=== PATIENT | male | born 1935 | race Caucasian/White ===

== ENCOUNTER 2018-08-17 09:38 | Inpatient (IN) ==
[2018-08-17] MEDS ORDERED: dilTIAZem HCl 5 MG/ML 5 ML VIAL IV STA (09:59)
[2018-08-17] MEDS ORDERED: SODIUM CHLORIDE 0.9% 500 ML IV SCH (10:00)
--- NOTE | 2018-08-17 10:35 | XRay Report ---
XR chest 1V portable HISTORY: weakness COMPARISON: Chest 01/25/2012. FINDINGS: The lungs are clear. Cardiac silhouette is mildly enlarged. This remains unchanged. No pleu ral effusions. No pneumothorax. IMPRESSION: No significant change compared to the prior study. No acute process. Electronically signed by: Parrish Cintron M.D. 08/17/2018 10:34 AM
[2018-08-17 10:46] LABS: Basophils # (auto) 0.05 K/uL (0-0.2); Basophils % (auto) 0.6 %; Eosinophils # (auto) 0.48 K/uL (0-0.5); Eosinophils % (auto) 5.3 %; Hematocrit (blood only) 51.2 % (42-52); Hemoglobin 17.6 g/dL (14.0-18.0); Immature Granulocytes # (auto) 0.01 K/uL (0.00-0.02); Immature Granulocytes % (auto) 0.1 %; Lymphocytes # (auto) 2.48 K/uL (1.2-3.4); Lymphocytes % (auto) 27.6 %; Mean Corpuscular Hgb Conc 34.4 g/dL (32-36); Mean Corpuscular Volume 90.9 fL (80-100); Mean Platelet Volume 10.9 fL (7.4-10.4); Monocytes # (auto) 0.69 K/uL (0.11-0.59); Monocytes % (auto) 7.7 %; Neutrophils # (auto) 5.27 K/uL (1.4-6.5); Neutrophils % (auto) 58.7 %; Platelet Count 193 K/uL (130-400); RDW Coefficient of Variation 13.1 % (11.5-14.5); RDW Standard Deviation 43.2 fL (36.4-46.3); Red Blood Count 5.63 M/uL (4.7-6.1); White Blood Count 8.98 K/uL (4.8-10.8)
[2018-08-17 10:59] LABS: INR 1.1 (0.9-1.1); Prothrombin Time 10.8 Seconds (9.0-12.0)
[2018-08-17 11:04] LABS: Alanine Aminotransferase 19 U/L (12-78); Aspartate Aminotransferase 17 U/L (15-37); BUN Creatinine Ratio 11.4 (10-20); Blood Urea Nitrogen 14 mg/dl (7-18); Calcium 8.4 mg/dl (8.5-10.1); Carbon Dioxide 26 mmol/L (21-32); Chloride 108 mmol/L (98-107); Creatinine Clr Calc Pharmacy 47.1 ml/min; Est GFR (African American) 62.6; Glucose 91 mg/dl (70-99); Sodium 141 mmol/L (136-145)
[2018-08-17 11:15] LABS: Albumin Globulin Ratio 1.1 (0.9-2); Alkaline Phosphatase 42 U/L (45-117); Bilirubin,Total 1.2 mg/dl (0.2-1); Globulin 3.7 gm/dl (2.5-4.0); Total Protein 7.7 gm/dl (6.4-8.2); Troponin I < 0.015 ng/ml (0-0.045)
--- NOTE | 2018-08-17 11:31 | Emergency Department Note ---
Entered by Sri Menendez acting as a scribe for History of Present Illness General Chief complaint: Dizziness Time Seen by Provider: 08/17/18 09:50 Source: patient History of Present Illness Onset (ago): hour(s) 2 Location: head Severity: similar to prior episodes (atrial fibrillation) Pain Consistency: + other (sudden) Quality: + other (dizziness) Associated symptoms: + weakness and + other (lightheaded, feeling like going to passout, unsteady on feet) The patient is an 82 year old male who presents to the Emergency Room with complaints of sudden dizziness starting 2 hours ago. The patient states that this morning he woke up and went to wash his face. He states that while at the sink he suddenly felt lightheaded and like he was going to pass out. He states that his legs became weak and he collapsed to the floor. He states that he finally got himself up and felt unsteady on his feet, so he went and laid back down in bed. He reports that after a little while, he felt a little better. He states that he got up again and went and shaved. He reports that he was walking back into the bedroom after being up for 5-10 minutes when he started to feel dizzy and unsteady on his feet.. He reports that it felt like his balance was completely off. The patient notes that this feels similar to [place] and was diagnosed with atrial fibrillation. He states that since the episode he is on medicine to prevent him from being in atrial fibrillation and he is not normally in atrial fibrillation. Home Medications Home Medications Medication Instructions Recorded Confirmed Type aspirin 81 mg PO QAM 08/17/18 08/17/18 History cholecalciferol (vitamin D3) 1,000 unit PO QAM 08/17/18 08/17/18 History [Vitamin D3] glucosamine-chondroitin 2 tab PO QAM 08/17/18 08/17/18 History hydrochlorothiazide 12.5 mg PO Q2D 08/17/18 08/17/18 History metoprolol succinate 25 mg PO QAM 08/17/18 08/17/18 History omeprazole 20 mg PO QAM 08/17/18 08/17/18 History Allergies Allergy/AdvReac Type Severity Reaction Status Date / Time No Known Allergies Allergy Mild Verified 08/17/18 10:21 Past Med/Surg History Medical History Atrial fibrillation Macular degeneration Family History Other Family history non-contributory Social History marital status: Current Living Situation: Spouse current occupational status: retired Feels Safe at Home: Yes Smoking Status: Former smoker Review of Systems See HPI for pertinent positives & negatives. and A total of 10 systems reviewed and were otherwise negative Physical Exam Vital Signs Vital Signs - 24 hr 08/17/18 09:46 08/17/18 09:52 08/17/18 09:53 Temperature 36.9 C Temperature Source Oral Sepsis Recent Fever Within 48 Hours No Sepsis Action Taken by Nursing No Action Required Pulse Rate 112 H 119 H 109 H Pulse Rhythm Regular Pulse Strength Normal Respiratory Rate 18 18 20 Respiratory Effort / Characteristics Non-Labored Spontaneous Respiratory Depth Normal Blood Pressure 158/122 H 158/122 H Blood Pressure Mean 134 134 Blood Pressure Position Lying Pulse Oximetry 97 Oxygen Delivery Method Room Air 08/17/18 10:00 08/17/18 10:01 08/17/18 10:30 Temperature Temperature Source Sepsis Recent Fever Within 48 Hours Sepsis Action Taken by Nursing Pulse Rate 122 H 97 H 120 H Pulse Rhythm Pulse Strength Respiratory Rate 22 24 21 Respiratory Effort / Characteristics Respiratory Depth Blood Pressure 144/92 H Blood Pressure Mean 109 Blood Pressure Position Pulse Oximetry Oxygen Delivery Method Room Air 08/17/18 10:37 08/17/18 10:41 08/17/18 10:46 Temperature Temperature Source Sepsis Recent Fever Within 48 Hours Sepsis Action Taken by Nursing Pulse Rate 107 H 110 H 92 H Pulse Rhythm Pulse Strength Respiratory Rate 17 18 15 Respiratory Effort / Characteristics Respiratory Depth Blood Pressure 119/94 139/94 122/76 Blood Pressure Mean 102 109 91 Blood Pressure Position Pulse Oximetry Oxygen Delivery Method 08/17/18 10:51 08/17/18 10:56 08/17/18 11:00 Temperature Temperature Source Sepsis Recent Fever Within 48 Hours Sepsis Action Taken by Nursing Pulse Rate 81 80 99 H Pulse Rhythm Pulse Strength Respiratory Rate 19 16 14 Respiratory Effort / Characteristics Respiratory Depth Blood Pressure 131/67 128/76 Blood Pressure Mean 88 93 Blood Pressure Position Pulse Oximetry Oxygen Delivery Method 08/17/18 11:30 01/30/19 11:31 Temperature Temperature Source Sepsis Recent Fever Within 48 Hours Sepsis Action Taken by Nursing Pulse Rate 84 84 Pulse Rhythm Pulse Strength Respiratory Rate 20 19 Respiratory Effort / Characteristics Respiratory Depth Blood Pressure 124/71 Blood Pressure Mean 88 Blood Pressure Position Pulse Oximetry Oxygen Delivery Method VITAL SIGNS: were reviewed as above. GENERAL:Non-toxic in appearance. SKIN: Warm dry and pink. HEAD: Normocephalic and atraumatic. OROPHARYNX: Is clear and moist NECK: Supple without lymphadenopathy or meningismus. LUNGS: clear. HEART: Regular rate and rhythm. ABDOMEN: Soft and nontender. EXTREMITIES: Warm and well perfused. NEUROLOGICALLY: Awake alert and oriented without focal deficit. Cranial nerves 2 -12 are intact. There is no pronator drift. Cerebellar testing is within normal limits. There is no nystagmus. There is no facial droop. Speech is clear. Vision is grossly normal. MUSCULOSKELETAL: Good muscle tone. No evidence of trauma. Course 0951: Past medical records reviewed. The patient was evaluated in room A9B, and a complete history and physical examination were performed. 1125: I reevaluated the patient and he is feeling better. 1131: Nursing staff bought me the strip for the b2b sales professional and it showed that he patient had a run of V-tach. 1139: I paged the hospitalist at this time. 1141: I reviewed the patient's case with Dr. Ann Marie QURESHI Hospitalist. He will evaluate the patient for further management. 1144: I reevaluated the patient and updated him on his test results. I discussed the treatment plan with him and his family. They verbally agree and understand. Consultations Consultation #1: I reviewed the patient's case with Dr. Ann Marie QURESHI Hospitalist. He will evaluate the patient for further management. Time: 11:41 Administered Medications Discontinued Medications Diltiazem HCl (Cardizem) 15 mg IV NOW STA Stop: 08/17/18 10:00 Last Admin: 08/17/18 10:38 Dose: 15 mg Sodium Chloride (Nss) 500 mls @ 999 mls/hr IV .Q31M SHELDON Stop: 08/17/18 10:30 Last Infusion: 08/17/18 11:10 Dose: 0 mls/hr Admin: 08/17/18 10:38 Dose: 999 mls/hr Medical Decision Making Differential Diagnosis Differential includes acute coronary syndrome, myocardial infarction, CVA, TIA , anemia, infection, pneumonia, UTI, pyelonephritis, poor nutrition, dehydration , electrolyte disturbance,hypoglycemia. Medical Records Attestation: I reviewed the patient's medical records. Home Medications Current Medication List: was personally reviewed by me Laboratory Data Attestation: I reviewed the patient's lab results. Result diagrams: 08/17/18 10:35 08/17/18 10:35 Lab Results 08/17/18 08/17/18 08/17/18 Range/Units 10:35 10:35 10:35 WBC 8.98 (4.8-10.8) K/uL RBC 5.63 (4.7-6.1) M/uL Hgb 17.6 (14.0-18.0) g/dL Hct 51.2 (42-52) % MCV 90.9 (80-100) fL MCH 31.3 (25-34) pg MCHC 34.4 (32-36) g/dL RDW Std Deviation 43.2 (36.4-46.3) fL RDW Coeff of Frank 13.1 (11.5-14.5) % Plt Count 193 (130-400) K/uL MPV 10.9 H (7.4-10.4) fL Immature Gran % (Auto) 0.1 % Neut % (Auto) 58.7 % Lymph % (Auto) 27.6 % [place] % (Auto) 7.7 % Eos % (Auto) 5.3 % Baso % (Auto) 0.6 % Immature Gran # (Auto) 0.01 (0.00-0.02) K/uL Neut # (Auto) 5.27 (1.4-6.5) K/uL Lymph # (Auto) 2.48 (1.2-3.4) K/uL [place] # (Auto) 0.69 H (0.11-0.59) K/uL Eos # (Auto) 0.48 (0-0.5) K/uL Baso # (Auto) 0.05 (0-0.2) K/uL PT 10.8 (9.0-12.0) Seconds INR 1.1 (0.9-1.1) Sodium 141 (136-145) mmol/L Potassium 4.0 (3.5-5.1) mmol/L Chloride 108 H (98-107) mmol/L Carbon Dioxide 26 (21-32) mmol/L Anion Gap 7.0 (3-11) BUN 14 (7-18) mg/dl Creatinine 1.25 (0.6-1.4) mg/dl Est Cr Clr Drug Dosing 47.1 ml/min Est GFR ( Amer) 62.6 Est GFR (Non-Af Amer) 54.0 BUN/Creatinine Ratio 11.4 (10-20) Glucose 91 (70-99) mg/dl Calcium 8.4 L (8.5-10.1) mg/dl Total Bilirubin 1.2 H (0.2-1) mg/dl AST 17 (15-37) U/L ALT 19 (12-78) U/L Alkaline Phosphatase 42 L (45-117) U/L Troponin I < 0.015 (0-0.045) ng/ml Total Protein 7.7 (6.4-8.2) gm/dl Albumin 4.0 (3.4-5.0) gm/dl Globulin 3.7 (2.5-4.0) gm/dl Albumin/Globulin Ratio 1.1 (0.9-2) TSH 1.820 (0.300-4.500) uIu/ml Imaging Data Radiologist's Impression: Radiology results as stated below per my review and the radiologist's interpretation: XR chest 1V portable HISTORY: weakness COMPARISON: Chest 01/25/2012. FINDINGS: The lungs are clear. Cardiac silhouette is mildly enlarged. This remains unchanged. No pleural effusions. No pneumothorax. IMPRESSION: No significant change compared to the prior study. No acute process. Electronically signed by: Parrish Cintron M.D. 08/17/2018 10:34 AM ECG Data Attestation: I personally reviewed and interpreted this ECG as follows: Indication: weakness Rate (beats per minute): 112 Rhythm: atrial flutter Findings: + PVC; no ST elevation Additional Comments: REPEAT: Atrial flutter at a rate of 86. Multifocal PVCs. No acute ischemia. Blood Pressure Blood Pressure Findings: Normal blood pressure Blood Pressure Disposition: did not require urgent referral MDM Narrative This is an 82-year-old male who presents to the ED with a chief complaint of feeling well this morning. The patient at 8 AM states that he was washing his face and suddenly felt weak and lightheaded. He laid down on the bed for a few minutes and then seemed to be better. He was able to finish shaving and when he was walking back to the bedroom he began feeling unsteady. He was brought to the ED for evaluation. He is currently feeling better. The patient's physical exam was unremarkable. He does have an irregular and slightly rapid pulse. His initial EKG shows atrial flutter with RVR at a rate of 116 with occasional PVCs and no ischemic changes. After IV Cardizem 20 mg, the patient' s heart rate improved. His blood work including a CBC and chemistry panel was unremarkable. Troponin was negative, TSH was normal. The patient did have at least 2 runs of ventricular tachycardia during his ED stay. One episode included about 10 beats and the second episode was 23 beats long. The patient was seen to the time and did not have any significant clinical symptoms with this. I spoke with the hospitalist, who will see the patient for further inpatient evaluation and care. The patient was also given some IV fluids 500 cc normal saline. Impression & Plan Ventricular tachycardia, Atrial flutter with rapid ventricular response Discharge Plan Visit Data Chief Complaint: Dizziness ED Provider: Rodríguez Arthur Discharge Problem: Ventricular tachycardia, Atrial flutter with rapid ventricular response Patient Disposition: Being Evaluated by Hospitalist Condition: Good Forms Stand Alone Forms: My [facility] Prescriptions Prescriptions: No Action aspirin 81 mg Tablet,Delayed Release (Dr/Ec) 81 mg PO QAM RF: 0 omeprazole 20 mg Capsule,Delayed Release(Dr/Ec) 20 mg PO QAM RF: 0 hydrochlorothiazide 25 mg tablet 12.5 mg PO Q2D RF: 0 metoprolol succinate 25 mg tablet extended release 24 hr 25 mg PO QAM RF: 0 cholecalciferol (vitamin D3) [Vitamin D3] 1,000 unit Capsule 1,000 unit PO QAM RF: 0 glucosamine-chondroitin 750-600 mg Tablet 2 tab PO QAM RF: 0 Referrals Referrals: Zafar De La Fuente III, CRNP [Primary Care Provider] - The scribe's documentation has been prepared under my direction and personally reviewed by me in its entirety. I confirm that the note above accurately reflects all work, treatment, procedures, and medical decision making performed by me.
[2018-08-17] MEDS ORDERED: METOPROLOL SUCC 50MG EXT REL TAB PO STA (12:18)
[2018-08-17] MEDS ORDERED: METOPROLOL SUCC 50MG EXT REL TAB ONE (12:21)
--- NOTE | 2018-08-17 12:22 | History & Physical Report ---
Date of Service August 17, 2018 Assessment & Plan (1) Ventricular tachycardia: several runs of V tach in the ED longest was 20 beats, non-sustained no symptoms while he had the V tach but perhaps this is what gave him dizziness at home will increase Toprol to 50mg, give dose in the ED since he did not take at home check troponin x 3 sets to r/o ischemia as cause check echocardiogram consult Dr. Salcedo (2) Atrial flutter with rapid ventricular response: h/o afib several years ago, treated with Toprol not on anticoagulation per patient he said that to his knowledge he has been in sinus rhythm, must have converted with medications will consult ortho place on full dose Lovenox for anticoagulation until we decide on PO anticoagulation (3) GERD (gastroesophageal reflux disease): PPI History of Present Illness Chief Complaint: I felt like I was going to pass out Primary Care Provider: Zafar De La Fuente, III, [employer] 82 yo male who lives at home independently, presents to the ED today due to two separate pre-syncopal episodes. The patient says he woke up feeling normal. He was standing at the sink shaving when he felt like he was going to pass out. He did not have any chest pain/pressure or palpitations, just light headed and diaphoretic. He layed down on his bed for several minutes and gradually sat up and felt better. He again stood at the sink and finished shaving but then he had another episode that was exactly the same so he and his family agreed that he should come to the ED. Initial EKG showed atrial flutter but in the 110's. He was given a dose of Cardizem and HR came down to the 90's. CBC and BMP were unremarkable. Troponin was negtive. Discussed further with patient, he carries a history of atrial fibrillation, was followed by Dr. Salcedo. He takes Toprol 25mg every morning. He thinks he converted to NSR on medication because he never had a cardioversion. In the ED he had a few runs of V tach that were non-sustained. Ranged between 8 -20 beats, he did not have any symptoms. Recent history significant for right eye surgery yesterday for macular degeneration, was a simple outpatient procedure, no complications Family hx: both parents lived into their 90's, of natural causes Social hx: no significant tobacco or Etoh history, retired for 20 years, walks every day, never has chest pain Allergies Allergy/AdvReac Type Severity Reaction Status Date / Time No Known Allergies Allergy Mild Verified 08/17/18 10:21 Home Medications Home Medications Medication Instructions Recorded Confirmed Type aspirin 81 mg PO QAM 08/17/18 08/17/18 History cholecalciferol (vitamin D3) 1,000 unit PO QAM 08/17/18 08/17/18 History [Vitamin D3] glucosamine-chondroitin 2 tab PO QAM 08/17/18 08/17/18 History hydrochlorothiazide 12.5 mg PO Q2D 08/17/18 08/17/18 History metoprolol succinate 25 mg PO QAM 08/17/18 08/17/18 History omeprazole 20 mg PO QAM 08/17/18 08/17/18 History Past Med/Surg History Medical History Atrial fibrillation Macular degeneration Family History Other Family history non-contributory Social History marital status: Current Living Situation: Spouse current occupational status: retired Other Information That Helps Us Care for You: No Feels Safe at Home: Yes Safety Concerns: Feels Safe At This Time Smoking Status: Former smoker Do You Dip or Chew Tobacco: No Second Hand Exposure: No Tobacco Cessation Education Requested by Patient: No Hx Alcohol Use: Yes Alcohol Intake Frequency: holidays/special occasions only Hx Substance Use: No Beliefs That Will Affect Care: None Preferred Language: [place] Communication Ability: Effective Child Study Team Director Required: No Review of Systems All systems reviewed & are unremarkable except as noted in HPI & below Constitutional: + weakness; no fever, no sweats and no fatigue Cardiovascular: + lightheadedness; no chest pain, no radiating jaw, neck or arm pain, no dyspnea, no dyspnea on exertion, no palpitations, no syncope (+ presyncope) and no edema Gastrointestinal: no abdominal pain, no nausea, no vomiting, no constipation and no diarrhea/loose stools Genitourinary (Male): no dysuria and no difficulty urinating Neurologic: no gait abnormality, no falls, no lack of coordination, no abnormal movements and no dizziness Psychiatric: no depression and no anxiety Physical Exam 2 Vital Signs (Past 24 Hours): Last Vital Signs Temp 36.9 C 08/17/18 09:53 Pulse 84 08/17/18 11:31 Resp 19 08/17/18 11:31 BP 124/71 08/17/18 11:31 Pulse Ox 97 08/17/18 09:53 Constitutional: WD/WN, vitals as above Eyes: normal visual [place] by confrontation, + scleral abnormality (right eye red due to recent procedure, no purulent drainage), EOM intact bilaterally and reactive pupils; no conjunctival abnormality ENMT: external ear and nose normal, oropharynx normal Neck: trachea midline, no thyromegaly Respiratory: normal respiratory effort, lungs clear to auscultation Cardiovascular: Rate/Rhythm: regular rate; + abnormal rhythm (irregular irregular) Heart Sounds: normal S1 and normal S2; no murmur Vessels: normal peripheral pulses Extremities: no pedal edema Gastrointestinal (Abdomen): normal bowel sounds, soft, nontender, no hepatosplenomegaly Musculoskeletal: no cyanosis or clubbing, extremities motor strength 5/5 Skin: no rashes, warm and dry Neurologic: patellar DTR's 2+ bilat, sensation intact and PERRL, EOMI, accommodation nl, no face palsy, no dysarthria normal touch/pain/ proprioception Psychiatric: A+Ox3, euthymic affect Lymphatic: no cervical or axillary lymphadenopathy Results & Data Laboratory Results Laboratory Results - last 24 hr 08/17/18 08/17/18 08/17/18 10:35 10:35 10:35 WBC 8.98 RBC 5.63 Hgb 17.6 Hct 51.2 MCV 90.9 MCH 31.3 MCHC 34.4 RDW Std Deviation 43.2 RDW Coeff of Frank 13.1 Plt Count 193 MPV 10.9 H Immature Gran % (Auto) 0.1 Neut % (Auto) 58.7 Lymph % (Auto) 27.6 [place] % (Auto) 7.7 Eos % (Auto) 5.3 Baso % (Auto) 0.6 Immature Gran # (Auto) 0.01 Neut # (Auto) 5.27 Lymph # (Auto) 2.48 [place] # (Auto) 0.69 H Eos # (Auto) 0.48 Baso # (Auto) 0.05 PT 10.8 INR 1.1 Sodium 141 Potassium 4.0 Chloride 108 H Carbon Dioxide 26 Anion Gap 7.0 BUN 14 Creatinine 1.25 Est Cr Clr Drug Dosing 47.1 Est GFR ( Amer) 62.6 Est GFR (Non-Af Amer) 54.0 BUN/Creatinine Ratio 11.4 Glucose 91 Calcium 8.4 L Total Bilirubin 1.2 H AST 17 ALT 19 Alkaline Phosphatase 42 L Troponin I < 0.015 Total Protein 7.7 Albumin 4.0 Globulin 3.7 Albumin/Globulin Ratio 1.1 TSH 1.820 Urine Color Urine Appearance Urine pH Ur Specific [place] Urine Protein Urine Glucose (UA) Urine Ketones Urine Blood Urine Nitrite Urine Bilirubin Urine Urobilinogen Ur Leukocyte Esterase 08/17/18 08/17/18 16:59 Unknown WBC RBC Hgb Hct MCV MCH MCHC RDW Std Deviation RDW Coeff of Frank Plt Count MPV Immature Gran % (Auto) Neut % (Auto) Lymph % (Auto) [place] % (Auto) Eos % (Auto) Baso % (Auto) Immature Gran # (Auto) Neut # (Auto) Lymph # (Auto) [place] # (Auto) Eos # (Auto) Baso # (Auto) PT INR Sodium Potassium Chloride Carbon Dioxide Anion Gap BUN Creatinine Est Cr Clr Drug Dosing Est GFR ( Amer) Est GFR (Non-Af Amer) BUN/Creatinine Ratio Glucose Calcium Total Bilirubin AST ALT Alkaline Phosphatase Troponin I < 0.015 Total Protein Albumin Globulin Albumin/Globulin Ratio TSH Urine Color Yellow Urine Appearance Clear Urine pH 7.0 Ur Specific [place] 1.011 Urine Protein Negative Urine Glucose (UA) Negative Urine Ketones Trace H Urine Blood Negative Urine Nitrite Negative Urine Bilirubin Negative Urine Urobilinogen Negative Ur Leukocyte Esterase Negative Diagnostic Findings CXR: no acute pulmonary issues Medications Administered Current Inpatient Medications Acetaminophen (Tylenol) 650 mg PO Q4H PRN PRN Reason: Pain or Fever Stop: 09/16/18 13:53 Aspirin (Ecotrin Ectab) 81 mg PO QAM [facility] Stop: 09/17/18 08:59 Enoxaparin Sodium (Lovenox) 80 mg SQ Q12H [facility] Stop: 09/17/18 05:59 Metoprolol Succinate (Toprol Xl) 50 mg PO QAM [facility] Stop: 09/17/18 08:59 Ondansetron HCl (Zofran) 4 mg IV Q6H PRN PRN Reason: Nausea Stop: 09/16/18 13:53 Pantoprazole Sodium (Protonix) 40 mg PO DAILY [facility]; Protocol Stop: 09/17/18 08:59 Vitamin D (Vitamin D3) 1,000 units PO QAM [facility] Stop: 09/17/18 08:59 Code Status & VTE Plan Code Status full code VTE Prophylaxis Plan VTE Prophylaxis will be ordered: Yes
[2018-08-17] MEDS ORDERED: ONDANSETRON INJ 2 MG/ML 2 ML VIAL IV PRN (13:54)
[2018-08-17] MEDS ORDERED: ACETAMINOPHEN 325 MG TAB PO PRN (13:54)
[2018-08-17] MEDS ORDERED: ENOXAPARIN INJ 40 MG/0.4 ML SYR SQ SCH (13:54)
[2018-08-17] MEDS ORDERED: ENOXAPARIN 80 MG/0.8 ML SYR SQ SCH (15:15)
--- NOTE | 2018-08-17 15:47 | Cardiology Consultation ---
Date of Consultation August 17, 2018 Assessment & Plan (1) Atrial flutter with rapid ventricular response: His records report a history of atrial fibrillation. The rhythm documented today is more consistent with an atrial flutter. Curiously, he seem to have the same symptoms in association with atrial fibrillation several years ago. I suspect his symptoms were related to a change in rhythm from sinus to atrial flutter. While he continues to be in atrial flutter, his symptoms have entirely resolved. This was most likely due to increased vagal output around the time of his rhythm change. In the past, it seems that he converted spontaneously to sinus. He has not been maintained on systemic anticoagulation as he has not had any documented recurrence until now. Hopefully he will return to sinus rhythm on his own. I think we can initiate anticoagulation this evening and monitor his rhythm overnight. In the absence of a conversion he could be placed on systemic anticoagulation for 1 month and cardioverted. Catheter based therapy for his atrial flutter could also be considered although in the setting of prior atrial fibrillation treatment of his flutter would not prevent recurrence of atrial fibrillation. Present on Admission?: Yes (2) Ventricular tachycardia: He was reported to have runs of ventricular tachycardia in the emergency room. I have not found any documentation this arrhythmia. This could been aberrant conduction in the setting of atrial flutter. Interestingly, the patient is known to have frequent PVCs. A review of his old EKGs in the 1 recorded today suggests that the morphology of the wide complex beats are similar to his old PVCs. I suspect he continues to have frequent PVCs and may have episodes of nonsustained ventricular tachycardia at times. I think this is less likely to have caused his symptoms today. However, I think an assessment of his left ventricular function is in order so that he can be risk stratified regarding the likelihood of more malignant arrhythmias. I would agree with continued beta blockade. Present on Admission?: No (3) Valvular heart disease: He was known to have an element of mitral regurgitation in association with an abnormal mitral valve. He is known to have a sclerotic aortic valve and mild aortic regurgitation. This will be reassessed on his echocardiogram. Present on Admission?: Yes (4) Aortic root dilation: His aortic root measured 4.4 centimeters in 2017. Will reassess on his echocardiogram today. Present on Admission?: Yes History of Present Illness Reason for Consultation: Syncope Requesting Physician: Lorenzo Attending Physician: Drake Ventura, DO History of Present Illness The patient is an 82-year-old gentleman with a history of syncope and atrial fibrillation who suffered an episode presyncope and weakness earlier this morning. Patient states that this morning he was in the bathroom getting rate to shave when he began to experience a sense of weakness. He felt as if he was going to fall and actually eased himself to the ground in his bathroom. He continued to be weak but was able to make it to his bed where he lie down for a while. After feeling better he attended ambulate again but reported significant weakness in his legs and fell to the floor. He contacted his who eventually brought into [facility] for evaluation. He does not believe he lost consciousness during these episodes. He did describe some vague sense of dizziness but in general felt as if he was more weak than dizzy. He was not aware of any palpitations at that time. Curiously, he feels that his initial episode of syncope which [place] involved similar symptoms. At [facility] he was discovered to be in atrial flutter with rapid ventricular response. He was administered some diltiazem with improvement in his heart rate. According to the notes he did have several episodes of ventricular tachycardia in the emergency room. Two specific episodes 1 of which lasted for 25 beats. The patient not appear to be symptomatic during these episodes. In general he is an active individual who exercises regularly. He performs exercise on a treadmill routinely. He does not report any new exercise intolerance. He has not had exertional dyspnea or any chest discomfort. He has not been aware of any palpitations. He does take his blood pressure regularly at home and has not reported unusual heart rate readings. His heart rate commonly is irregular however. At the time of this interview the patient is feeling well and has no symptoms. Allergies Allergy/AdvReac Type Severity Reaction Status Date / Time No Known Allergies Allergy Mild Verified 08/17/18 10:21 Home Medications Home Medications Medication Instructions Recorded Confirmed Type aspirin 81 mg PO QAM 08/17/18 08/17/18 History cholecalciferol (vitamin D3) 1,000 unit PO QAM 08/17/18 08/17/18 History [Vitamin D3] glucosamine-chondroitin 2 tab PO QAM 08/17/18 08/17/18 History hydrochlorothiazide 12.5 mg PO Q2D 08/17/18 08/17/18 History metoprolol succinate 25 mg PO QAM 08/17/18 08/17/18 History omeprazole 20 mg PO QAM 08/17/18 08/17/18 History Patient History Medical History Atrial fibrillation Macular degeneration Family History Other Family history non-contributory Social History marital status: Current Living Situation: Spouse current occupational status: retired Other Information That Helps Us Care for You: No Feels Safe at Home: Yes Safety Concerns: Feels Safe At This Time Smoking Status: Former smoker Do You Dip or Chew Tobacco: No Second Hand Exposure: No Tobacco Cessation Education Requested by Patient: No Hx Alcohol Use: Yes Alcohol Intake Frequency: holidays/special occasions only Hx Substance Use: No Beliefs That Will Affect Care: None Preferred Language: Irish Communication Ability: Effective Nanotechnologist Required: No Review of Systems Complete. Pertinent positives known history of present illness. No recent constitutional symptoms such as fevers or chills. No orthopnea or paroxysmal nocturnal dyspnea. No edema in lower extremities. Physical Exam 2 Vital Signs (Past 24 Hours): Last Vital Signs Temp 36.9 C 08/17/18 14:17 Pulse 63 08/17/18 14:17 Resp 18 08/17/18 14:17 BP 159/82 H 08/17/18 14:17 Pulse Ox 97 08/17/18 14:17 Physical Exam: The patient is alert and oriented. Mood and affect appeared normal. He answered all questions appropriately. HEENT: Pupils are equal and reactive to light and accommodation. Extraocular movements are intact. The sclerae are anicteric. Neuro: Cranial nerves intact Neck: Patient's neck is supple. He has palpable carotid pulses bilaterally without bruits on auscultation. There is no evidence of jugular venous distention. The thyroid is not enlarged. Lungs: Clear to auscultation bilaterally. He has good air movement without use of accessory muscles. No rales wheezes or rhonchi. Cardiac: Heart demonstrates a regular rate and rhythm with frequent ectopy. Normal S1 and S2. No murmurs on examination. Pulses: The patient has palpable radial pulses bilaterally that are equal in intensity Extremities: There was no evidence of hypoperfusion. There is no cyanosis or clubbing. There is no edema. Skin: I did not appreciate any rashes on examination today. Results & Data Laboratory Results Abnormal Lab Results 08/17/18 08/17/18 08/17/18 10:35 10:35 10:35 WBC 8.98 RBC 5.63 Hgb 17.6 Hct 51.2 MCV 90.9 MCH 31.3 MCHC 34.4 RDW Std Deviation 43.2 RDW Coeff of Frank 13.1 Plt Count 193 MPV 10.9 H Immature Gran % (Auto) 0.1 Neut % (Auto) 58.7 Lymph % (Auto) 27.6 Dewitt % (Auto) 7.7 Eos % (Auto) 5.3 Baso % (Auto) 0.6 Immature Gran # (Auto) 0.01 Neut # (Auto) 5.27 Lymph # (Auto) 2.48 Dewitt # (Auto) 0.69 H Eos # (Auto) 0.48 Baso # (Auto) 0.05 PT 10.8 INR 1.1 Sodium 141 Potassium 4.0 Chloride 108 H Carbon Dioxide 26 Anion Gap 7.0 BUN 14 Creatinine 1.25 Est Cr Clr Drug Dosing 47.1 Est GFR ( Amer) 62.6 Est GFR (Non-Af Amer) 54.0 BUN/Creatinine Ratio 11.4 Glucose 91 Calcium 8.4 L Total Bilirubin 1.2 H AST 17 ALT 19 Alkaline Phosphatase 42 L Troponin I < 0.015 Total Protein 7.7 Albumin 4.0 Globulin 3.7 Albumin/Globulin Ratio 1.1 TSH 1.820 Diagnostic Findings Echocardiogram obtained 09/30/2016: Normal LV systolic function. Type 2 diastolic dysfunction. Mild aortic regurgitation. Moderate mitral regurgitation. Dilated at ascending aorta. ECG Additional Comments: Twelve lead EKG obtained the time admission reveals an atrial flutter with frequent ectopy versus aberrant conduction.
[2018-08-17 16:13] LABS: Appearance Urine Clear (Clear); Bilirubin Urine Negative (Negative); Color Urine Yellow; Glucose Urine UA Negative (Negative); Ketones Urine Trace (Negative); Leukocyte Esterase Urine Negative (Negative); Nitrite Urine Negative (Negative); Protein Urine Negative (Negative); Specific Gravity Urine 1.011 (1.000-1.030); Urobilinogen Urine Negative (Negative)
[2018-08-18] MEDS ORDERED: ENOXAPARIN 80 MG/0.8 ML SYR SQ SCH (06:00)
[2018-08-18] MEDS: PANTOprazole 40 MG TAB PO SCH (08:05)
[2018-08-18] MEDS: CHOLECALCIFEROL 1,000 UNITS TAB PO SCH (08:05)
[2018-08-18] MEDS ORDERED: ASPIRIN 81 MG ECTAB PO SCH (09:00)
[2018-08-18] MEDS ORDERED: METOPROLOL SUCC 25MG EXT REL TAB PO SCH (09:00)
--- NOTE | 2018-08-18 09:42 | Cardiology Progress Note ---
Date of Service August 18, 2018 Assessment & Plan (1) Atrial fibrillation: He presents now with recurrent atrial fibrillation and possible intermittent flutter, with a presentation very similar to his last episode in 2012. Conceivably he has had episodes in the interim but it seems unlikely although he does not feel palpitations. He had an eye injection performed the day before his presentation, they checked his blood pressure and heart rate and he knew his blood pressure but did not know his heart rate but says that he did hear the number and it seemed okay, it seems unlikely he would have been in this arrhythmia at that time and it would not have been noticed. If needed we can investigate, however that would suggest that the arrhythmia occurred overnight and was not present when he went to bed the night before. He will need to stay on anticoagulation now, his rate appears well controlled. If he feels well with rate control and anticoagulation I think he can go home and we can follow him up in the office next week to see if he remains in atrial fibrillation. I suspect he will convert on his own but we will have to see. For now I would agree with increasing his metoprolol, he is on 25 mg at home and 50 mg here. His blood pressure is a little bit elevated if anything and therefore would like to go up on the dose since his heart rate is not low. I am going to give him another 50 mg now. He could go home on 100 mg daily if he does well with this. He should stop his aspirin while on anticoagulation. I would recommend using Eliquis. His dose would be 5 mg twice daily. (2) Pre-syncope: His presyncopal event is most likely due to the atrial fibrillation which she does not feel, the symptoms were primarily orthostatic and are virtually identical to what he experienced in 2012 when he had transient atrial fibrillation. I would not pursue further. (3) Ventricular tachycardia: He is reported to have a wide-complex tachycardia in the ER, he may have had that since he has had brief runs of it in the past as well as frequent premature ventricular beats. He has not had excessive ventricular ectopy during this hospitalization. He is on beta-blockade now, on a higher dose than at home, which may help to suppress the ventricular ectopy. Subjective This is a very pleasant 82 yo male who had an episode of syncope while golfing on January 25, 2012, it was witnessed and he fell to the ground. He then got up, walked to the golf cart and then had another pre-syncopal episode when getting out of the golf cart. [facility] and had an ECG showing atrial fibrillation with rapid HR, which he did not feel. By the time he got into the emergency room he was feeling better, was in sinus rhythm with PACs and had no further episodes of atrial fibrillation. He was hospitalized briefly, then discharged on aspirin and low-dose beta-blockade. He has had no further syncope or documented atrial fibrillation until this admission. In September 2013 he has had very frequent premature ventricular beats identified on electrocardiography, these were asymptomatic. I did arrange a Holter monitor September 25, 2013 to see how many of these he had on a 24-hour basis. I also schedule an echocardiogram to make sure he was not having difficulty with his left ventricular function with these premature beats. He had about 36% premature ventricular beats as well as brief runs of nonsustained ventricular tachycardia and his left ventricular function was normal. His premature beats may originate from the right ventricle. Given his asymptomatic state and normal left ventricular function and he was already on a beta viktoria we did not alter his therapy. A repeat echocardiogram 09/18/2014 showed normal left ventricular size and function with an ejection fraction of 60% and a repeat Holter monitor 09/17/2014 showed only 3.8% premature ventricular beats and one 3 beat run of VT. A repeat echocardiogram on September 30, 2016 showed left ventricular ejection fraction of 70%. He now presents with another very similar episode. He got up out of bed yesterday morning, felt very lightheaded and dizzy and sank to the ground, he probably did not truly lose consciousness but was probably very close. He was then able to go back and shave but felt very poorly and was unsteady on his feet. He had no palpitations. Between his episode in 2011 and this episode he does not recall having symptoms like this. He came into the emergency room was found to be in atrial fibrillation once again. Now after rate control (and anticoagulation) he has no symptoms whatsoever, he is not having palpitations, he is not having lightheadedness or dizziness and he has been out of bed and to the bathroom. Physical Exam 2 Vital Signs (Past 24 Hours): Last Vital Signs Temp 36.5 C 08/18/18 07:35 Pulse 73 08/18/18 07:35 Resp 18 08/18/18 07:35 BP 150/83 H 08/18/18 07:35 Pulse Ox 93 08/18/18 07:35 Physical Exam: Constitutional: Alert, cooperative and in no distress. HEENT: Unremarkable Neck: No jugular venous distention, carotid pulses are irregular but otherwise normal and equal bilaterally without bruits. Pulmonary: Clear to auscultation bilaterally. Cardiac: Irregular rhythm with soft holosystolic murmur at the apex, no gallop or rub. Abdomen: Soft, nontender with normal bowel sounds. Extremities: No edema. Distal pulses intact. Neurologic: No focal findings. Gait is steady. Skin: No rash, ecchymoses or petechiae. Results & Data Diagnostic Findings Telemetry: He remains in atrial fibrillation or flutter (due to the irregularity it may be atrial fibrillation), rate is generally 60-90 although at times as high as 141 out of bed and active. Echocardiogram: Normal left ventricular size and ejection fraction of 60-65%, moderate mitral regurgitation. Electrocardiogram this morning: Atrial fibrillation with a heart rate of 75 bpm.
--- NOTE | 2018-08-18 12:14 | Hospitalist Progress Note ---
Date of Service August 18, 2018 Assessment & Plan (1) Ventricular tachycardia: (2) Atrial flutter with rapid ventricular response: (3) GERD (gastroesophageal reflux disease): 82 yo male who lives at home independently, was admitted on August 17 2018 due to two separate pre-syncopal episodes. Initial EKG in ed showed atrial flutter but in the 110's. He was given a dose of Cardizem and HR came down to the 90's. CBC and BMP were unremarkable. Troponin was negtive. A flutter upon admission currently is a flutter however rate controlled Several episodes of ventricular tachycardia:, NSVT h/o afib several years ago, treated with Toprol Cardiology input appreciated, increase Toprol to 100mg po daily , and recommend Eliquis, for stroke prevention, checked echocardiogram, showed normal LVEF, more details please see formal report, cardiac enzymes troponin negative x3 sets, TSH was normal Has discontinue Lovenox, started Eliquis after discussed with patient about the risk, benefit and options, GERD: comnt PPI Increase activity, planning to discharge home tomorrow Subjective Sitting up eating lunch, no complaint, Denied palpitation, denies chest pain, denies dizziness Review of Systems Constitutional: negative weakness, or fatigue Respiratory: no cough, sputum, wheezing, or dyspnea on exertion Cardiac: No chest pain, No orthopnea, No PND, Abdomen: No pain, No nausea, No vomiting, No diarrhea, No constipation, No GI bleeding Musculoskeletal: No joint pain, No muscle pain, No swelling, No calf pain, No problem reported : No dysuria, No urinary frequency, No incontinence, No hematuria Neurologic: No paralysis, No weakness, No numbness/tingling, No vertigo, No balance problems Psychiatric: No depression symptoms, No anhedonism, Heme: No abnormal bleeding/bruising, No clotting problems, Skin: No rash, No itch, No new/changing skin lesions, No color change, No bleeding Physical Exam 2 Vital Signs (Past 24 Hours): Last Vital Signs Temp 36.5 C 08/18/18 11:36 Pulse 66 08/18/18 11:36 Resp 18 08/18/18 11:36 BP 144/74 H 08/18/18 11:36 Pulse Ox 98 08/18/18 11:36 Physical Exam: General Appearance: WD/WN, no apparent distress, Eyes: normal inspection, PERRL, EOMI, sclerae normal ENT: normal ENT inspection, hearing grossly normal, pharynx normal Neck: supple, no adenopathy, thyroid normal, no JVD, no carotid bruits, trachea midline Respiratory/Chest: chest non-tender, normal breath sounds, no respiratory distress, no accessory muscle use, breath sounds, rales, wheezing Cardiovascular: irregular rate, rhythm, no JVD, no murmur Abdomen: normal bowel sounds, non tender, soft, no organomegaly, Extremities: normal range of motion, non-tender, normal inspection, no pedal edema, no calf tenderness, normal capillary refill , pelvis stable, joint has no limited range of motion, capillary refill is normal, no cyanosis clubbing Neurologic/Psychiatric: equipment man II-XII nml as tested, no motor/sensory deficits, alert, normal mood/affect, oriented x 3 Skin: normal color, warm/dry, no rash Lymphatic: no adenopathy Results & Data Laboratory Results Laboratory Results - last 24 hr 08/17/18 08/17/18 08/17/18 16:59 23:04 Unknown Troponin I < 0.015 < 0.015 Urine Color Yellow Urine Appearance Clear Urine pH 7.0 Ur Specific [place] 1.011 Urine Protein Negative Urine Glucose (UA) Negative Urine Ketones Trace H Urine Blood Negative Urine Nitrite Negative Urine Bilirubin Negative Urine Urobilinogen Negative Ur Leukocyte Esterase Negative 08/18/18 05:12 Troponin I < 0.015 Urine Color Urine Appearance Urine pH Ur Specific [place] Urine Protein Urine Glucose (UA) Urine Ketones Urine Blood Urine Nitrite Urine Bilirubin Urine Urobilinogen Ur Leukocyte Esterase
[2018-08-18] MEDS: APIXABAN 5 MG TABLET PO SCH (18:19)
[2018-08-19] MEDS: APIXABAN 5 MG TABLET PO SCH (05:28)
[2018-08-19] MEDS: PANTOprazole 40 MG TAB PO SCH (07:45)
[2018-08-19] MEDS: CHOLECALCIFEROL 1,000 UNITS TAB PO SCH (07:45)
[2018-08-19] MEDS ORDERED: METOPROLOL SUCC 50MG EXT REL TAB PO SCH (09:00)
--- NOTE | 2018-08-19 13:08 | Discharge Summary ---
Date of Service August 19, 2018 Admission HPI Per Admitting Provider 82 yo male who lives at home independently, presents to the ED today due to two separate pre-syncopal episodes. The patient says he woke up feeling normal. He was standing at the sink shaving when he felt like he was going to pass out. He did not have any chest pain/pressure or palpitations, just light headed and diaphoretic. He layed down on his bed for several minutes and gradually sat up and felt better. He again stood at the sink and finished shaving but then he had another episode that was exactly the same so he and his family agreed that he should come to the ED. Initial EKG showed atrial flutter but in the 110's. He was given a dose of Cardizem and HR came down to the 90's. CBC and BMP were unremarkable. Troponin was negtive. Discussed further with patient, he carries a history of atrial fibrillation, was followed by Dr. Salcedo. He takes Toprol 25mg every morning. He thinks he converted to NSR on medication because he never had a cardioversion. In the ED he had a few runs of V tach that were non-sustained. Ranged between 8 -20 beats, he did not have any symptoms. Recent history significant for right eye surgery yesterday for macular degeneration, was a simple outpatient procedure, no complications Family hx: both parents lived into their 90's, of natural causes Social hx: no significant tobacco or Etoh history, retired for 20 years, walks every day, never has chest pain Principal Diagnosis aflutter rate controlled Discharge Data Allergies Allergy/AdvReac Type Severity Reaction Status Date / Time No Known Allergies Allergy Mild Verified 08/17/18 10:21 Consultations 08/17/18 13:54 Consult Cardiology Routine Consult Case Management - Discharge Planning Routine Hospital Course (1) Ventricular tachycardia: (2) Atrial flutter with rapid ventricular response: (3) GERD (gastroesophageal reflux disease): 82 yo male who lives at home independently, was admitted on August 17 2018 due to two separate pre-syncopal episodes. Initial EKG in ed showed atrial flutter but in the 110's. He was given a dose of Cardizem and HR came down to the 90's. CBC and BMP were unremarkable. Troponin was negtive. A flutter upon admission currently is a flutter however rate controlled Several episodes of ventricular tachycardia:, NSVT h/o afib several years ago, treated with Toprol Cardiology input appreciated, increase Toprol to 100mg po daily , and recommend Eliquis, for stroke prevention, checked echocardiogram, showed normal LVEF, more details please see formal report, cardiac enzymes troponin negative x3 sets, TSH was normal Has discontinue Lovenox, started Eliquis after discussed with patient about the risk, benefit and options, GERD: comnt PPI Increase activity, planning to discharge home Subjective upon discharge: No complaint, no chest pain no palpitation, Objective upon discharge: Review of Systems Constitutional: negative weakness, or fatigue Respiratory: no cough, sputum, wheezing, or dyspnea on exertion Cardiac: No chest pain, No orthopnea, No PND, No claudication, No palpitations , Abdomen: No pain, No nausea, No vomiting, No diarrhea, No constipation, No GI bleeding Musculoskeletal: No joint pain, No muscle pain, No swelling, No calf pain, No problem reported : No dysuria, No urinary frequency, No incontinence, No hematuria Neurologic: No paralysis, No weakness, No numbness/tingling, No vertigo, No balance problems Psychiatric: No depression symptoms, No anhedonism, No anxiety, No insomnia, No substance abuse Heme: No abnormal bleeding/bruising, No clotting problems, No swollen lymph nodes, No night sweats Skin: No rash, No itch, No new/changing skin lesions, No color change, No bleeding Physical exam upon discharge: General Appearance: WD/WN, no apparent distress, Eyes: normal inspection, PERRL, EOMI, sclerae normal ENT: normal ENT inspection, hearing grossly normal, pharynx normal Neck: supple, no adenopathy, thyroid normal, no JVD, no carotid bruits, trachea midline Respiratory/Chest: chest non-tender, normal breath sounds, no respiratory distress, no accessory muscle use, breath sounds, rales, wheezing Cardiovascular: irregular rate, rhythm, no JVD, no murmur Abdomen: normal bowel sounds, non tender, soft, no organomegaly, Extremities: normal range of motion, non-tender, normal inspection, no pedal edema, no calf tenderness, normal capillary refill , pelvis stable, joint has no limited range of motion, capillary refill is normal, no cyanosis clubbing Neurologic/Psychiatric: shredding specialist II-XII nml as tested, no motor/sensory deficits, alert, normal mood/affect, oriented x 3 Skin: normal color, warm/dry, no rash Lymphatic: no adenopathy Total Time Total Time Spent Total Time Spent (In Minutes): 35 Total Time Includes: Examination of the Patient, Discharge Planning, Medication Reconciliation and Communication With Other Providers Discharge Plan Discharge Items Patient Disposition: Home - Self-Care Reason For Visit: ATRIAL FLUTTER, V TACH Discharge Diagnosis: A flutter rate controlled Condition: Good Discharge Goals: Decrease discomfort, Diagnostic testing and Improve disease control Activity: Resume your previous activity Non-emergency contact: Primary Care Provider and Aerospace Mechanic Call non-emergency contact if: you have any medication questions Follow-up/Referrals: Zafar De La Fuente III, CRNP [Primary Care Provider] - 08/29/18 11:00 am (Please, follow up with Zafar MCCLAIN on WednesdayAugust 29 at 11:00 am. *If you need to change this appointment, call the office at [phone].) Diet: Heart Healthy Addtl Provider Instructions: you have Atrial flutter with rapid ventricular response: rate controlled we have increased Toprol to 100mg po daily , and started Eliquis, for stroke prevention, your echocardiogram, showed normal LVEF, You need to follow-up with cardiology in 2-3 weeks, to discuss the next step of care plan you need to follow up with your primary care physician in 1 week, - take medication as instructed, never overdose or any misuse, or take with alcohol, because misuse of medicine may cause organ damage or , call me , or your primary care physician if have questions of discharge medicaitons. - call your primary care physician, or go to local emergency room if has any fever/chill, chest pain, shortness of breathing, nausea/vomiting/abdominal pain , facial droop/slurry speech/local weakness, or if has any questions. - fall precaution - diet as instructed - you need to follow up with your subspecialist, such as Dr. Lawton Prescriptions: New apixaban [Eliquis] 5 mg Tablet 5 mg PO BID@0600,1800 30 Days Qty: 30 RF: 0 Continue aspirin 81 mg Tablet,Delayed Release (Dr/Ec) 81 mg PO QAM RF: 0 omeprazole 20 mg Capsule,Delayed Release(Dr/Ec) 20 mg PO QAM RF: 0 hydrochlorothiazide 25 mg tablet 12.5 mg PO Q2D RF: 0 cholecalciferol (vitamin D3) [Vitamin D3] 1,000 unit Capsule 1,000 unit PO QAM RF: 0 glucosamine-chondroitin 750-600 mg Tablet 2 tab PO QAM RF: 0 Changed metoprolol succinate 25 mg tablet extended release 24 hr 100 mg PO QAM Qty: 0 RF: 0 Stand-Alone Forms: [facility]/Other Patient Handouts: AFL/Afib, Stroke Prevent Live W Atrial Fib Discharge Orders: Discharge Order (Routine); Ordered 08/19/18 Ordered By: Rinku Contreras Admission Data Admit Date/Time: 08/17/18 13:06 Attending Provider: Rinku Contreras Admit Provider: Drake Ventura Primary Care Provider: Zafar De La Fuente III Other Providers: Darrius Salcedo ; Drake Ventura Service: Telemetry
== END 2018-08-19 13:44 | disposition home or self-care (01) | DRG 310 ==
LOC: ED 09:38 → 2S 09:38 → SUATTDRO 13:06 → 2S 13:28

== ENCOUNTER 2024-07-24 08:38 | Observation (INO) ==
--- NOTE | 2024-07-24 08:54 | Emergency Department Note ---
Impression & Plan Lightheadedness ED Provider Note HISTORY OF PRESENT ILLNESS: Patient is an 88-year-old male presenting with dizziness. Patient reports that last night when he stood up to get out of his chair he became very dizzy, described as feeling lightheaded like he was going to pass out. He states that when he finally got to his bedroom he felt much better when he was laying flat. He states he got up this morning get up out of bed and had another episode of feeling lightheaded like he was going to pass out. Denies any chest pain or shortness of breath with the dizziness. He reports that he has had similar episodes before and was admitted to the hospital for A-fib at the time. He denies any headache or change in vision. Denies any recent falls or head injury. Denies any numbness, tingling or weakness in extremities. On arrival to the ER, he reports he feels fine, but states he would be nervous to stand up. He denies any recent fevers. Denies any abdominal pain, nausea or vomiting. Denies any dysuria or hematuria. He is on Eliquis for history of A-fib. ROS: as above PHYSICAL EXAM: Constitutional: Patient appears in no acute distress. HENT: Head: Normocephalic and atraumatic. Eyes: EOMI, PERRL Mouth/Throat: Mucous membranes moist. Neck: Trachea midline. Neck supple. Cardiovascular: Irregular rhythm. No murmurs, rubs or gallops. Intact distal pulses. Pulmonary/Chest: No respiratory distress. Breath sounds clear and equal bilaterally. No wheezes or rales. Abdominal: Abdomen soft, no tenderness, rebound or guarding. Musculoskeletal: No edema, tenderness or deformity noted. Skin: Warm and dry. No rash, erythema, pallor or cyanosis Psychiatric: Appropriate mood and affect for situation. Neurological: Alert and keenly responsive. Facies symmetric. Able to raise eyebrows, close eyes, smile, puff mouth, stick out tongue, move tongue left and right and raise palate symmetrically. Able to shrug shoulders. PERRLA. SILT to forehead below eye and at jawline. Can hear soft noise bilaterally. Good finger to nose. Strength 5/5 in bilateral upper and lower extremities. SILT throughout bilateral upper and lower extremities. MDM: - Vitals signs showed hypertension - History obtained via patient. History as above. - Chronic conditions affecting care: HTN; Afib; central retinal vein occlusion; GERD - Differential diagnoses include, but are not limited to: CVA; intracranial hemorrhage; ACS; dysrhythmia; dehydration; UTI; pneumonia; viral syndrome - Order placed for continuous cardiac monitoring. At this time, monitor showed rate of 67 bpm with irregular rhythm, per my interpretation. - External medical records reviewed. Primary care visit note dated 07/20/2024 was reviewed. Patient was seen for a preoperative visit for evaluation prior to right hernia repair surgery. - EKG interpreted by myself showed atrial fibrillation. Rate 76 bpm. QT 416. No acute ischemic changes. - Laboratory workup interpreted by myself showed normal WBC; normal PT/INR; stable electrolytes; elevated total bilirubin (2.0); normal troponin - UA negative for infection - Viral respiratory panel negative - CXR negative for acute pneumonia, per my interpretation - Orthostatic vital signs stable, the patient became very dizzy and lightheaded with standing. - CT head wo contrast negative for acute pathology - Patient given 25 mg PO meclizine. Still complaining of dizziness with standing. - Discussion was had with pillowcase maker about patient's case and need for admission - Hospitalist consulted for admission - [facility] ASSESSMENT AND PLAN: Diagnosis: lightheadedness Plan: admit Past Med/Surg History Problem List (Updated 07/24/24 @ 13:18 by Elly Lemons MD) Lightheadedness (Acute) Heart disease Arthritis Right inguinal hernia Unsteady gait Central retinal vein occlusion Valvular heart disease Atrial fibrillation (Chronic) Frequent PVCs Benign essential hypertension (Chronic) Gastro-esophageal reflux disease without esophagitis (Chronic) Medical History (Updated 07/24/24 @ 13:18 by Elly Lemons MD) Gout Elevated uric acid in blood Traumatic open wound of left lower leg with delayed healing Skin ulcer Ascending aorta dilatation Atrial flutter Aortic root dilation Atrial flutter with rapid ventricular response Ventricular tachycardia Atrial fibrillation Macular degeneration Surgical History S/P hernia surgery Family History (Updated 06/12/24 @ 14:00 by Charline Gautam RN) Father Prostate cancer Mother Stroke Other Family history non-contributory Denies family history of Ovarian cancer Myocardial infarction Breast cancer Colorectal cancer Social History (Updated 06/12/24 @ 14:01 by Charline Gautam RN) Smoking Status: Former smoker Tobacco Type: Cigarettes Age Started Using Tobacco: 21; Age Quit Using Tobacco: 42; packs per day: 0.5; Second Hand Exposure: No; Do You Dip or Chew Tobacco: No; Hx Alcohol Use: Yes Alcohol type: wine Alcohol Intake Frequency: 2-3 x/Week Hx Substance Use: No Preferred Language: Azeri Communication Ability: Effective Visual Impairment: No Limitations Hearing Ability: Use of Hearing Aid Box Stacker Required: No Beliefs That Will Affect Care: None marital status: / Current Living Situation: Alone current occupational status: retired 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 [employer] How many Children do You have: 2 Feels Safe at Home: Yes Childhood Exposure to Second-Hand Smoke: No Diet: regular during the past year weight has: decreased > 10 lbs Dental Care, Regularly: Yes Physical Activity Frequency: 3-4 Times per Week Seatbelt Use: always Sunscreen Use: No Assistive Devices: Glasses and Hearing Aid - Bilateral Allergies Allergies Allergy/AdvReac Type Severity Reaction Status Date / Time No Known Drug Allergies Allergy Verified 07/20/24 15:11 Home Meds Home Medications Medication Instructions Recorded Confirmed apixaban 5 mg tablet 5 mg PO BID #60 tabs 04/05/19 07/24/24 omeprazole 20 mg capsule,delayed 20 mg PO DAILY 04/05/19 07/24/24 release [id number] 5 mg-zeaxanth 1 cap PO DAILY 03/04/23 07/24/24 1 mg-bilberry 7.5 mg-herbal capsule (Macular Health Formula) geriatric [id number] 1 tab PO DAILY 08/15/23 07/24/24 losartan 50 mg tablet 50 mg PO DAILY 06/01/24 07/24/24 amlodipine 2.5 mg tablet 5 mg PO DAILY 07/20/24 07/24/24 Previous Rx's Medication Instructions Recorded cholecalciferol (vitamin D3) 25 1,000 units PO DAILY #30 caps 06/01/19 mcg (1,000 unit) capsule metoprolol succinate 100 mg 100 mg PO DAILY #90 tabs 09/20/23 tablet,extended release 24 hr Results & Data (ED) Vital Signs Vital Signs - 24 hr 07/24/24 08:49 07/24/24 08:49 07/24/24 08:49 Temperature 36.5 C Temperature Source Oral Pulse Rate - Lying Pulse Rate - Sitting Pulse Rate - Standing Pulse Rate 71 72 Pulse Rate from SpO2 Sensor Pulse Rhythm Irregular Irregular Pulse Strength Normal Respiratory Rate 16 16 Respiratory Effort / Characteristics Non-Labored Respiratory Depth Normal Respiratory Pattern Regular Blood Pressure - Lying Blood Pressure - Sitting Blood Pressure- Standing Blood Pressure 155/89 H Blood Pressure Mean 111 Pulse Oximetry 99 98 99 Oxygen Delivery Method Room Air Room Air Room Air Sepsis Recent Fever Within 48 Hours No Sepsis New/Unexplained Change in Mental Status N/A Sepsis Action Taken by Nursing No Action Required 07/24/24 08:51 07/24/24 09:21 07/24/24 09:32 Temperature Temperature Source Pulse Rate - Lying 66 Pulse Rate - Sitting 69 Pulse Rate - Standing 80 Pulse Rate 76 65 Pulse Rate from SpO2 Sensor Pulse Rhythm Pulse Strength Respiratory Rate 16 Respiratory Effort / Characteristics Respiratory Depth Respiratory Pattern Blood Pressure - Lying 139/73 Blood Pressure - Sitting 141/80 H Blood Pressure- Standing 146/93 H Blood Pressure 155/89 H Blood Pressure Mean 111 Pulse Oximetry 99 Oxygen Delivery Method Room Air Sepsis Recent Fever Within 48 Hours Sepsis New/Unexplained Change in Mental Status Sepsis Action Taken by Nursing 07/24/24 10:18 07/24/24 13:11 Temperature Temperature Source Pulse Rate - Lying Pulse Rate - Sitting Pulse Rate - Standing Pulse Rate 67 Pulse Rate from SpO2 Sensor 82 Pulse Rhythm Pulse Strength Respiratory Rate Respiratory Effort / Characteristics Respiratory Depth Respiratory Pattern Blood Pressure - Lying Blood Pressure - Sitting Blood Pressure- Standing Blood Pressure 138/69 Blood Pressure Mean 92 Pulse Oximetry 100 Oxygen Delivery Method Sepsis Recent Fever Within 48 Hours Sepsis New/Unexplained Change in Mental Status Sepsis Action Taken by Nursing Laboratory Data 07/24/24 09:11 07/24/24 09:11 Lab Results 07/24/24 Range/Units 09:11 WBC 7.72 (4.8-10.8) K/ul RBC 4.91 (4.70-6.10) M/uL Hgb 15.4 (14.0-18.0) g/dl Hct 44.9 (42.0-52.0) % MCV 91.4 (80.0-100.0) fL MCH 31.4 (25.0-34.0) pg MCHC 34.3 (32.0-36.0) g/dL RDW Std Deviation 42.2 (36.4-46.3) fL RDW Coeff of Frank 12.7 (11.5-14.5) % Plt Count 181 (130-400) K/uL MPV 10.2 (9.4-12.4) fL Immature Gran % (Auto) 0.3 % Neut % (Auto) 41.8 % Lymph % (Auto) 39.0 % Garvin % (Auto) 9.2 % Eos % (Auto) 8.5 % Baso % (Auto) 1.2 % Neut # (Auto) 3.23 (1.40-6.50) K/uL Lymph # (Auto) 3.01 (1.20-3.40) K/uL Garvin # (Auto) 0.71 H (0.11-0.59) K/uL Eos # (Auto) 0.66 H (0.00-0.50) K/uL Baso # (Auto) 0.09 (0.00-0.20) K/uL Immature Gran # (Auto) 0.02 (0.01-0.20) K/uL PT 11.5 (9.0-12.0) Seconds INR 1.1 (0.9-1.1) Sodium 141 (136-145) mmol/L Potassium 4.3 (3.5-5.1) mmol/L Chloride 107 (98-107) mmol/L Carbon Dioxide 27 (21-32) mmol/L Anion Gap 7 (3-11) BUN 16 (6-23) mg/dl Creatinine 0.91 (0.6-1.4) mg/dl Est Cr Clr Drug Dosing 58.3 ml/min eGFR 82.08 BUN/Creatinine Ratio 17.6 (10-20) Glucose 99 (70-99(Fasting)) mg/dl Calcium 9.6 (8.6-10.3) mg/dl Magnesium 2.1 (1.7-2.4) mg/dl Total Bilirubin 2.0 H (0.2-1.0) mg/dl AST 27 (13-39) U/L ALT 15 (7-52) U/L Alkaline Phosphatase 42 (34-104) U/L Troponin I High Sens 11.0 (0-20) pg/ml Total Protein 7.6 (6.0-8.3) gm/dl Albumin 4.6 (3.4-5.0) gm/dl Globulin 3.0 (2.5-4.0) gm/dl Albumin/Globulin Ratio 1.5 (0.9-2) Urine Color Yellow Urine Appearance Clear (Clear) Urine pH 7.5 (4.5-7.5) Ur Specific [place] 1.007 (1.000-1.030) Urine Protein Negative (Negative) Urine Glucose (UA) Negative (Negative) Urine Ketones Negative (Negative) Urine Blood Negative (Negative) Urine Nitrite Negative (Negative) Urine Bilirubin Negative (Negative) Urine Urobilinogen Negative (Negative) Ur Leukocyte Esterase Negative (Negative) Adenovirus (PCR) Not Detected (NotDetected) B. pertussis DNA (PCR) Not Detected (NotDetected) B.parapertussis DNA PCR Not Detected (NotDetected) C. pneumoniae DNA (PCR) Not Detected (NotDetected) Coronavirus OC43 (PCR) Not Detected (NotDetected) Coronavirus HKU1 (PCR) Not Detected (NotDetected) Coronavirus 229E (PCR) Not Detected (NotDetected) SARS-CoV-2 (PCR) Not Detected (NotDetected) Coronavirus NL63 (PCR) Not Detected (NotDetected) Human Metapneumovir PCR Not Detected (NotDetected) Influenza Type A (PCR) Not Detected (NotDetected) Influenza Type B (PCR) Not Detected (NotDetected) M. pneumoniae (PCR) Not Detected (NotDetected) Parainfluenza 1 (PCR) Not Detected (NotDetected) Parainfluenza 2 (PCR) Not Detected (NotDetected) Parainfluenza 3 (PCR) Not Detected (NotDetected) Parainfluenza 4 (PCR) Not Detected (NotDetected) RSV (PCR) Not Detected (NotDetected) Entero/Rhino (PCR) Not Detected (NotDetected) Administered Medications Discontinued Medications Meclizine HCl (Meclizine Hcl 25 Mg Tab) 25 mg PO NOW STA Stop: 07/24/24 11:59 Last Admin: 07/24/24 12:02 Dose: 25 mg Documented By: ANT Imaging Data Radiologist's Impression: Chest X-Ray 07/24/24 08:48 XR chest 1V portable CLINICAL HISTORY: dizziness COMPARISON STUDY: Chest radiograph and chest CT August 15, 2023. FINDINGS: Lung volumes are normal. Lungs are clear. There is no pneumothorax or pleural effusion. Cardiomegaly is unchanged. Mediastinal contours are normal. There is no evidence for pulmonary edema. IMPRESSION: No acute cardiopulmonary findings. No change in appearance of the chest. ACT 112: Negative or not required by law. Electronically signed by: Vignesh Collins M.D. 07/24/2024 9:[address] 07/24/24 08:48 CT head/brain wo con CLINICAL HISTORY: dizziness Technique: Contiguous axial CT images of the head were acquired from the base of the skull to the vertex without intravenous contrast administration. Images were viewed in brain, subdural and bone windows. Automated dose lowering techniques and/or adjustment according to patient size were utilized for this exam. Comparison: None available at the time of this dictation. Findings: Areas of decreased attenuation are present in the periventricular and subcortical white matter bilaterally consistent with small vessel ischemic disease. Generalized cerebral atrophy with commensurate enlargement of the ventricles, sulci, and cisterns is also present. There is no acute intracranial hemorrhage or evidence of acute territorial infarction. No shift of the midline structures, mass effect, or extra-axial abnormalities are shown. Atherosclerotic calcifications are present in the intracranial segments of the internal carotid arteries. Opacification of the ethmoid air cells and thickening of the maxillary and frontal sinus soft tissue is noted. The orbits appear normal. There are no acute fractures of the calvaria or scalp swelling. Impression: No acute intracranial hemorrhage, no evidence of acute territorial infarction or other acute intracranial disease process. ACT 112: Negative or not required by law. Electronically signed by: Drake Puckett M.D. 07/24/2024 11:11 AM Discharge Plan Visit Data Chief Complaint: Dizziness ED Provider: Elly Lemons Discharge Problem: Lightheadedness Forms Stand Alone Forms: [facility] Prescriptions Prescriptions: No Action metoprolol succinate 100 mg tablet extended release 24 hr 100 mg PO DAILY Qty: 90 3RF cholecalciferol (vitamin D3) 1,000 unit capsule 1,000 units PO DAILY Qty: 30 0RF Eliquis 5 mg tablet 5 mg PO BID Qty: 60 omeprazole 20 mg capsule,delayed release(DR/EC) 20 mg PO DAILY Macular Health Formula 5-1-7.5 mg capsule 1 cap PO DAILY losartan 50 mg tablet 50 mg PO DAILY amlodipine 2.5 mg tablet 5 mg PO DAILY Multivitamin w/Minerals, Iron Tablet 1 tab PO DAILY Referrals Referrals: Zafar De La Fuente III, CRNP [Primary Care Provider] -
[2024-07-24 09:21] VITALS: TEMP 97.7
[2024-07-24 09:29] LABS: Appearance Urine Clear (Clear); Bilirubin Urine Negative (Negative); Blood Urine Negative (Negative); Color Urine Yellow; Glucose Urine UA Negative (Negative); Ketones Urine Negative (Negative); Leukocyte Esterase Urine Negative (Negative); Nitrite Urine Negative (Negative); Protein Urine Negative (Negative); Specific Gravity Urine 1.007 (1.000-1.030); Urobilinogen Urine Negative (Negative); pH Urine 7.5 (4.5-7.5)
--- NOTE | 2024-07-24 09:30 | XRay Report ---
XR chest 1V portable CLINICAL HISTORY: dizziness COMPARISON STUDY: Chest radiograph and chest CT August 15, 2023. FINDINGS: Lung volumes are normal. Lungs are clear. There is no pneumothorax or pleural effusion. Car diomegaly is unchanged. Mediastinal contours are normal. There is no evidence for pulmonary edema. IMPRESSION: No acute cardiopulmonary findings. No change in appearance of the chest. ACT 112: Negative or not required by law. Electronically signed by: Vignesh Collins M.D. 07/24/2024 9:28 AM
[2024-07-24 09:37] LABS: Basophils # (auto) 0.09 K/uL (0.00-0.20); Basophils % (auto) 1.2 %; Eosinophils # (auto) 0.66 K/uL (0.00-0.50); Eosinophils % (auto) 8.5 %; Hematocrit (blood only) 44.9 % (42.0-52.0); Hemoglobin 15.4 g/dl (14.0-18.0); Immature Granulocytes # (auto) 0.02 K/uL (0.01-0.20); Immature Granulocytes % (auto) 0.3 %; Lymphocytes # (auto) 3.01 K/uL (1.20-3.40); Mean Corpuscular Hemoglobin 31.4 pg (25.0-34.0); Mean Corpuscular Hgb Conc 34.3 g/dL (32.0-36.0); Mean Corpuscular Volume 91.4 fL (80.0-100.0); Mean Platelet Volume 10.2 fL (9.4-12.4); Monocytes # (auto) 0.71 K/uL (0.11-0.59); Monocytes % (auto) 9.2 %; Neutrophils # (auto) 3.23 K/uL (1.40-6.50); Neutrophils % (auto) 41.8 %; Platelet Count 181 K/uL (130-400); RDW Coefficient of Variation 12.7 % (11.5-14.5); RDW Standard Deviation 42.2 fL (36.4-46.3); Red Blood Count 4.91 M/uL (4.70-6.10); White Blood Count 7.72 K/ul (4.8-10.8)
[2024-07-24 09:51] LABS: Albumin Globulin Ratio 1.5 (0.9-2); Albumin Level 4.6 gm/dl (3.4-5.0); BUN Creatinine Ratio 17.6 (10-20); Calcium 9.6 mg/dl (8.6-10.3); Creatinine Clr Calc Pharmacy 58.3 ml/min; Magnesium 2.1 mg/dl (1.7-2.4); Potassium 4.3 mmol/L (3.5-5.1); Total Protein 7.6 gm/dl (6.0-8.3)
[2024-07-24 10:01] LABS: INR 1.1 (0.9-1.1); Prothrombin Time 11.5 Seconds (9.0-12.0)
[2024-07-24 10:22] LABS: Adenovirus PCR Not Detected (NotDetected); Bordetella parapertussis PCR Not Detected (NotDetected); Bordetella pertussis PCR Not Detected (NotDetected); Chlamydia pneumoniae PCR Not Detected (NotDetected); Coronavirus 229E PCR Not Detected (NotDetected); Coronavirus CoV-2 (COVID19)PCR Not Detected (NotDetected); Coronavirus HKU1 PCR Not Detected (NotDetected); Coronavirus NL63 PCR Not Detected (NotDetected); Coronavirus OC43PCR Not Detected (NotDetected); Human Metapneumovirus PCR Not Detected (NotDetected); Influenza A PCR Not Detected (NotDetected); Influenza B PCR Not Detected (NotDetected); Mycoplasma pneumoniae PCR Not Detected (NotDetected); Parainfluenza Virus 1 PCR Not Detected (NotDetected); Parainfluenza Virus 2 PCR Not Detected (NotDetected); Parainfluenza Virus 3 PCR Not Detected (NotDetected); Parainfluenza Virus 4 PCR Not Detected (NotDetected); Respiratory Syncytial VirusPCR Not Detected (NotDetected); Rhinovirus/Enterovirus PCR Not Detected (NotDetected)
--- NOTE | 2024-07-24 11:12 | CT Scan Report ---
CT head/brain wo con CLINICAL HISTORY: dizziness Technique: Contiguous axial CT images of the head were acquired from the base of the skull to the arnie analilia without intravenous contrast administration. Images were viewed in brain, subdural and bone [facility]. Automated dose lowering techniques and/or adjustment according to patient size were utilized for this exam. Comparison: None available at the time of this dictation. Findings: Areas of decreased attenuation are present in the periventricular and subcortical white matter bilate rally consistent with small vessel ischemic disease. Generalized cerebral atrophy with commensurate e nlargement of the ventricles, sulci, and cisterns is also present. There is no acute intracranial hem orrhage or evidence of acute territorial infarction. No shift of the midline structures, mass effect, or extra-axial abnormalities are shown. Atherosclerotic calcifications are present in the intracran ial segments of the internal carotid arteries. Opacification of the ethmoid air cells and thickening of the maxillary and frontal sinus soft tissue is noted. The orbits appear normal. There are no acute fractures of the calvaria or scalp swelling. Impression: No acute intracranial hemorrhage, no evidence of acute territorial infarction or other acute intracra nial disease process. ACT 112: Negative or not required by law. Electronically signed by: Drake Puckett M.D. 07/24/2024 11:11 AM
[2024-07-24] MEDS: MECLIZINE HCL 25 MG TAB PO STA (12:02)
--- NOTE | 2024-07-24 14:03 | History & Physical Report ---
Date of Service July 24, 2024 Assessment & Plan (1) Acute labyrinthitis: Plan: Suspected acute labyrinthitis producing vertigo. Will need to rule out midbrain CVA. Brain MRI is pending. Scheduled dosing of methylprednisolone and meclizine ordered. (2) Atrial fibrillation: Plan: Controlled rate. Continue metoprolol. Telemetry. Continue Eliquis (3) Benign essential hypertension: Plan: Continue metoprolol. Amlodipine and losartan discontinued due to moderately severe aortic valve stenosis (4) Aortic valve stenosis: Plan: Seen on most recent echo. Amlodipine and losartan are discontinued. Continue metoprolol Plan Hopeful discharge back to home in the next day or 2 History of Present Illness Chief Complaint: Vertigo Primary Care Provider: Zafar De La Fuente III, ELECTRICAL INSPECTOR 88-year-old white male who developed symptoms of vertigo yesterday. He states when he gets up he feels as if the room is spinning and he has difficulty walking in a straight line. He is better when he is lying still. He denies syncope or near syncope. He denies palpitations. There has been no focal motor weakness. He was seen in the ED and head CT scan on admission is unremarkable. Brain MRI is ordered and pending. He does have moderately severe aortic valve stenosis and his amlodipine and losartan are discontinued and he will remain on the metoprolol. He does not have orthostasis however. He will be placed in observation for further evaluation Allergies Allergy/AdvReac Type Severity Reaction Status Date / Time No Known Drug Allergies Allergy Verified 07/20/24 15:11 Home Medications Medication Instructions Recorded Confirmed Type apixaban 5 mg tablet 5 mg PO BID #60 tabs 04/05/19 07/24/24 History omeprazole 20 mg capsule,delayed 20 mg PO DAILY 04/05/19 07/24/24 History release cholecalciferol (vitamin D3) 25 1,000 units PO DAILY #30 caps 06/01/19 07/24/24 Rx mcg (1,000 unit) capsule [id number]-[id number] 5 mg-zeaxanth 1 cap PO DAILY 03/04/23 07/24/24 History 1 mg-bilberry 7.5 mg-herbal capsule (Macular Health Formula) geriatric jechqcnz-thhy-omzn 1 tab PO DAILY 08/15/23 07/24/24 History metoprolol succinate 100 mg 100 mg PO DAILY #90 tabs 03/04/24 01/06/25 Rx tablet,extended release 24 hr losartan 50 mg tablet 50 mg PO DAILY 06/01/24 07/24/24 History amlodipine 2.5 mg tablet 5 mg PO DAILY 07/20/24 07/24/24 History Past Med/Surg History Problem List (Updated 07/24/24 @ 14:02 by Maxi Kendrick MD) Aortic valve stenosis Acute labyrinthitis Lightheadedness (Acute) Heart disease Arthritis Right inguinal hernia Unsteady gait Central retinal vein occlusion Valvular heart disease Atrial fibrillation (Chronic) Frequent PVCs Benign essential hypertension (Chronic) Gastro-esophageal reflux disease without esophagitis (Chronic) Medical History (Updated 07/24/24 @ 14:02 by Maxi Kendrick MD) Gout Elevated uric acid in blood Traumatic open wound of left lower leg with delayed healing Skin ulcer Ascending aorta dilatation Atrial flutter Aortic root dilation Atrial flutter with rapid ventricular response Ventricular tachycardia Atrial fibrillation Macular degeneration Surgical History S/P hernia surgery Family History (Updated 06/12/24 @ 14:00 by Charline Gautam RN) Father Prostate cancer Mother Stroke Other Family history non-contributory Denies family history of Ovarian cancer Myocardial infarction Breast cancer Colorectal cancer Social History (Updated 06/12/24 @ 14:01 by Charline Gautam RN) Smoking Status: Former smoker Tobacco Type: Cigarettes Age Started Using Tobacco: 21; Age Quit Using Tobacco: 42; packs per day: 0.5; Second Hand Exposure: No; Do You Dip or Chew Tobacco: No; Hx Alcohol Use: Yes Alcohol type: wine Alcohol Intake Frequency: 2-3 x/Week Hx Substance Use: No Preferred Language: Icelandic Communication Ability: Effective Visual Impairment: No Limitations Hearing Ability: Use of Hearing Aid [employer] [place] [employer] Required: No Beliefs That Will Affect Care: None marital status: / Current Living Situation: Alone current occupational status: retired 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 [employer] How many Children do You have: 2 Feels Safe at Home: Yes Childhood Exposure to Second-Hand Smoke: No Diet: regular during the past year weight has: decreased > 10 lbs Dental Care, Regularly: Yes Physical Activity Frequency: 3-4 Times per Week Seatbelt Use: always Sunscreen Use: No Assistive Devices: Glasses and Hearing Aid - Bilateral Review of Systems 2 Review of Systems: Constitutionalno fever or chills ENTno blurred vision, no double vision, no epistaxis, no sore throat Respiratoryno cough, no wheezing, no shortness of breath Cardiacno palpitations, no chest pain, no syncope Jerilyn nausea, vomiting, diarrhea, melena, hematochezia GUno urinary retention, no urinary incontinence, no dysuria, no hematuria Musculoskeletalno joint pain, no muscle tenderness Skinno bruising, no rashes, no pruritus Neurono isolated weakness, no paresthesia. Vertigo when upright Psychno depression, no anxiety Physical Exam 2 Physical Exam: General-alert and oriented x3, no fever, no chills HEENT-head atraumatic and normocephalic, pupils equal and reactive to light, extraocular muscles intact Neck-no lymphadenopathy or thyromegaly, trachea midline Chest-clear to auscultation. No rales, wheezing or rhonchi Cardiac-controlled irregular rate and rhythm. Grade 2/6 systolic murmur. Normal S1 and S2 Abdomen-normal bowel sounds, no hepatosplenomegaly Extremities-no cyanosis, clubbing, or edema Neuro-cranial nerves II through XII intact, motor and sensory function within normal limits, strength symmetrical, no focal deficits. He does have rotary nystagmus Psych-normal affect, normal mood Results & Data Results & Data Vital Signs (Past 12 Hours) Vital Signs Temp Pulse Resp BP Pulse Ox O2 Del Method 07/24/24 13:11 67 07/24/24 10:18 138/69 100 07/24/24 09:21 65 16 155/89 H 99 Room Air 07/24/24 08:51 76 07/24/24 08:49 72 16 99 Room Air 07/24/24 08:49 98 Room Air 07/24/24 08:49 36.5 C 71 16 155/89 H 99 Room Air Laboratory Results 07/24/24 09:11 07/24/24 09:11 Code Status & VTE Plan Code Status Full code PG Care Time/CCT Total # of Minutes Spent Total Time Spent with Patient: Total time spent is greater than 50% in coordination of care (as documented) at patient's floor/unit and/or counseling patient: Coding Level of Care Code 25916 INT INP/OBS CARE 3/75MIN Diagnoses Acute labyrinthitis H83.09 Permanent atrial fibrillation I48.21 Atrial fibrillation type: permanent Benign essential hypertension I10 Aortic valve stenosis I35.0 (2) Atrial fibrillation Atrial fibrillation type: permanent Qualified Code(s): I48.21 - Permanent atrial fibrillation
[2024-07-24] MEDS ORDERED: methylPREDNISolone 10 mg/mL (For Ped Dose < 7mg) IV SCH ×2 (18:00→21:48)
[2024-07-24] MEDS: methylPREDNISolone 40 MG in SYRINGE 0 ML IV SCH (19:28)
[2024-07-24] MEDS: MECLIZINE 12.5 MG TAB PO SCH (21:05)
[2024-07-24] MEDS ORDERED: MECLIZINE 12.5 MG TAB PO SCH (21:48)
[2024-07-24] MEDS ORDERED: ONDANSETRON INJ 2 MG/ML 2 ML VIAL IV PRN (21:48)
[2024-07-24] MEDS ORDERED: ACETAMINOPHEN 325 MG TAB PO PRN (21:48)
[2024-07-24] MEDS: APIXABAN 5 MG TABLET PO SCH (22:28)
--- NOTE | 2024-07-25 00:50 | Magnetic Resonance Report ---
Exam(s): MRI HEAD Without Contrast EXAM: MR Head Without Intravenous Contrast CLINICAL HISTORY: Reason for exam: vertigo. TECHNIQUE: Magnetic resonance images of the head/brain without intravenous contrast in multiple planes. COMPARISON: CT head: 07/24/2024 FINDINGS: Brain: There is mild to moderate generalized atrophy. There is mild chronic cerebral small vessel disease. No hemorrhage. No restricted diffusion abnormality. Ventricles: Unremarkable. No ventriculomegaly. Bones/joints: Unremarkable. No acute fracture. Sinuses: Unremarkable as visualized. No acute sinusitis. Mastoid air cells: Unremarkable as visualized. No mastoid effusion. Orbits: Unremarkable as visualized. IMPRESSION: 1. No acute intracranial abnormality. 2. There is mild to moderate generalized atrophy. There is mild chronic cerebral small vessel disease. Electronically signed by: Augusto Vasquez MD 07/25/24 00:49 AM
--- NOTE | 2024-07-25 05:54 | Electrocardiogram Report ---
Test Reason : Blood Pressure : */* mmHG Vent. Rate : 76 BPM Atrial Rate : * BPM P-R Int : * ms QRS Dur : 94 ms QT Int : 416 ms P-R-T Axes : * -4 55 degrees QTcB Int : 468 ms Atrial fibrillation Incomplete right bundle branch block Septal infarct (cited on or before 27-May-2023) Abnormal ECG When compared with ECG of 01-Jun-2024 12:55, No significant change Confirmed by Darrius Salcedo ([id number]) on 07/25/2024 5:54:22 AM Referred By: Confirmed By: Darrius Salcedo
[2024-07-25] MEDS ORDERED: NON-FORMULARY MEDICATION (Mv-Mn-Lutein-Zeax-Bilber-Hb277 [Macular Health Formula] 5-1-7.5 PO SCH (09:00)
[2024-07-25] MEDS: METOPROLOL SUCC 50MG EXT REL TAB PO SCH (09:21)
[2024-07-25] MEDS: CHOLECALCIFEROL 25 MCG (1000 UNITS) TAB PO SCH (09:21)
[2024-07-25] MEDS: PANTOprazole 40 MG TAB PO SCH (09:22)
[2024-07-25] MEDS: MULTIVITAMIN TAB PO SCH (09:22)
[2024-07-25 10:47] VITALS: BP 131/72; PULSE 82; RESP 24; O2SAT 98
--- NOTE | 2024-07-25 13:25 | Discharge Summary ---
Discharge Summary Date of Service July 25, 2024 Principal Dx & Hospital Course #1 = Principal Diagnosis (1) Acute labyrinthitis: Suspected acute labyrinthitis producing vertigo. Brain MRI negative for acute CVA. He is much better with the meclizine and Solu-Medrol. He will remain on oral meclizine at discharge and a prednisone tapering dose. (2) Atrial fibrillation: Controlled rate. Continue metoprolol. Telemetry. Continue Eliquis (3) Benign essential hypertension: Continue metoprolol. Amlodipine and losartan discontinued due to moderately severe aortic valve stenosis (4) Aortic valve stenosis: Seen on most recent echo. Amlodipine and losartan are discontinued. Continue metoprolol Plan Home today, July 25 Admission HPI Per Admitting Provider 88-year-old white male who developed symptoms of vertigo yesterday. He states when he gets up he feels as if the room is spinning and he has difficulty walking in a straight line. He is better when he is lying still. He denies syncope or near syncope. He denies palpitations. There has been no focal motor weakness. He was seen in the ED and head CT scan on admission is unremarkable. Brain MRI is ordered and pending. He does have moderately severe aortic valve stenosis and his amlodipine and losartan are discontinued and he will remain on the metoprolol. He does not have orthostasis however. He will be placed in observation for further evaluation Discharge Exam General-alert and oriented x3, no fever, no chills HEENT-head atraumatic and normocephalic, pupils equal and reactive to light, extraocular muscles intact Neck-no lymphadenopathy or thyromegaly, trachea midline Chest-clear to auscultation. No rales, wheezing or rhonchi Cardiac-controlled irregular rate and rhythm. Grade 2/6 systolic murmur. Normal S1 and S2 Abdomen-normal bowel sounds, no hepatosplenomegaly Extremities-no cyanosis, clubbing, or edema Neuro-cranial nerves II through XII intact, motor and sensory function within normal limits, strength symmetrical, no focal deficits. He did have rotary nystagmus on admission Psych-normal affect, normal mood Discharge Plan Discharge Items Patient Disposition: Home - Self-Care Reason For Visit: VERTIGO Discharge Diagnosis: Acute labyrinthitis with vertigo Activity: Resume your previous activity Non-emergency contact: Primary Care Provider Call non-emergency contact if: your symptoms worsen Follow-up/Referrals: Zafar De La Fuente III, SHEET METAL DUCT INSTALLER [Primary Care Provider] - Diet: Regular and Heart Healthy Addtl Attending Provider Instructions: Take prednisone in a tapering dose fashion as directed. Take meclizine for 2 days beyond when symptoms of vertigo stop. Stop taking amlodipine and losartan. Pending Studies at Discharge: No Stand-Alone [facility] Sm[facility] Cess[facility] Medications and DC Order Prescriptions: New meclizine 12.5 mg Tablet 12.5 mg PO TID Qty: 20 0RF prednisone 10 mg tablet See Rx Instructions .ROUTE .COMPLEX Qty: 12 0RF Rx Instructions: 10 mg orally 3 times a day for 2 days, then 10 mg twice a day for 2 days, then 10 mg once a day for 2 days, then stop Continued metoprolol succinate 100 mg tablet extended release 24 hr 100 mg PO DAILY Qty: 90 3RF cholecalciferol (vitamin D3) 1,000 unit capsule 1,000 units PO DAILY Qty: 30 0RF Eliquis 5 mg tablet 5 mg PO BID Qty: 60 omeprazole 20 mg capsule,delayed release(DR/EC) 20 mg PO DAILY Macular Health Formula 5-1-7.5 mg capsule 1 cap PO DAILY Multivitamin w/Minerals, Iron Tablet 1 tab PO DAILY Discontinued losartan 50 mg tablet 50 mg PO DAILY amlodipine 2.5 mg tablet 5 mg PO DAILY Discharge Orders: Discharge Order (Routine); Ordered 07/25/24 Ordered By: Maxi Kendrick Admission Data Admit Date/Time: 07/24/24 13:52 Attending Provider: Maxi Kendrick Admit Provider: Maxi Kendrick Primary Care Provider: Zafar De La Fuente III Other Providers: Maxi Kendrick Hospital Stay Data Consultations 07/24/24 13:05 ED Decision to Admit Stat Diagnostic Imagining Performed 07/24/24 08:48 CT head/brain wo con Stat 07/24/24 21:48 MRI Brain [MR brain wo con] Urgent Pending Results Patient Have Any Pending Studies at Discharge: No Discharge Instructions Given to Patient (Per Discharging Provider) Take prednisone in a tapering dose fashion as directed. Take meclizine for 2 days beyond when symptoms of vertigo stop. Stop taking amlodipine and losartan. Total Time Total Time Spent Total Time Spent (In Minutes): 45 minutes Coding Level of Care Code 98900 INP/OBS DISCH >30 MIN Diagnoses Acute labyrinthitis H83.09 Permanent atrial fibrillation I48.21 Atrial fibrillation type: permanent Benign essential hypertension I10 Aortic valve stenosis I35.0
== END 2024-07-25 14:05 | disposition home or self-care (01) ==
LOC: SUATTDRO → EDINP 08:38 → ED 08:38 → EDINP 17:31